=== PATIENT | female | born 1980 | race Caucasian/White ===

== ENCOUNTER 2019-07-15 08:07 | Inpatient (IN) | payer OTHER ==
[2019-07-10 15:57] VITALS: BMI 46.5
--- NOTE | 2019-07-15 08:39 | HP ---
Admitting History and Physical - Admission Chief Complaint: Morbid obesity History Source: Patient Limitations to Obtaining History: No Limitations - Past Medical History Cardiovascular: Yes: HTN ...LMP Comment: 06/16 Endocrine: Yes: Diabetes Mellitus - Past Surgical History Past Surgical History: Yes: Cholecystectomy, , Hysterectomy Additional Past Surgical History: Fibroid surgery - Smoking History Smoking history: Never smoked Have you smoked in the past 12 months: No - Alcohol/Substance Use Hx Alcohol Use: No - Social History ADL: Independent Home Medications - Allergies Allergies/Adverse Reactions: Allergies Allergy/AdvReac Type Severity Reaction Status Date / Time morphine Allergy Mild Itching Verified 07/15/19 08:35 No Known Drug Allergies Allergy Mild Unverified 07/15/19 08:34 - Home Medications Home Medications: Ambulatory Orders Atenolol/Chlorthalidone [Atenolol-Chlorthalidone 100-25] 1 each PO DAILY Mag Hydrox/Al Hydrox/Simeth [Mylanta *Suspension*] 30 ml PO Q6H PRN 07/10/19 Metformin HCl [Glucophage] 1,000 mg PO BID 07/10/19 Ranitidine HCl 150 mg PO BID 07/10/19 Family Medical History Family History: Denies Review of Systems - Review of Systems Constitutional: denies: Chills, Fever Neck: reports: No Symptoms Cardiovascular: reports: No Symptoms Respiratory: reports: No Symptoms Gastrointestinal: reports: No Symptoms Neurological: reports: No Symptoms Pain Intensity: 0 Physical Examination Constitutional: Yes: Calm Neck: Yes: WNL Cardiovascular: Yes: WNL Respiratory: Yes: Regular Gastrointestinal: Yes: Soft, Abdomen, Obese Neurological: Yes: Alert, Oriented Problem List - Problems (1) Morbid obesity due to excess calories Code(s): E66.01 - MORBID (SEVERE) OBESITY DUE TO EXCESS CALORIES (2) BMI 45.0-49.9, adult Code(s): Z68.42 - BODY MASS INDEX (BMI) 45.0-49.9, ADULT (3) Diabetes mellitus type 2 in obese Code(s): E11.69 - TYPE 2 DIABETES MELLITUS WITH OTHER SPECIFIED COMPLICATION; E66.9 - OBESITY, UNSPECIFIED (4) Hypertension Code(s): I10 - ESSENTIAL (PRIMARY) HYPERTENSION Qualifiers: Hypertension type: unspecified Qualified Code(s): I10 - Essential (primary ) hypertension Assessment/Plan Laparoscopic possible open vertical sleeve gastrectomy possible liver biopsy, upper endoscopy
[2019-07-15] MEDS ORDERED: MIDAZOLAM HCL 2 MG/2 ML SINGLE DOSE VIAL ONE ×2 (09:19→09:58)
[2019-07-15] MEDS ORDERED: DEXAMETHASONE SOD PHOSPHATE/PF 10 MG/ML SDV ONE (09:19)
[2019-07-15] MEDS ORDERED: BUPIVACAINE HCL/PF 0.5% (5 MG/ML) 30 ML VIAL IJ ONE (09:20)
[2019-07-15] MEDS ORDERED: HEPARIN NA (PORCINE) 5,000 UNITS/ML 1ML VIAL ONE (09:52)
[2019-07-15] MEDS ORDERED: PROPOFOL 20 ML ONE (09:58)
[2019-07-15] MEDS ORDERED: fentaNYL CITRATE 250 MCG/5 ML VIAL ONE (09:58)
[2019-07-15] MEDS ORDERED: ROCURONIUM BROMIDE 50 MG/5 ML SYRINGE ONE (09:58)
[2019-07-15] MEDS ORDERED: ONDANSETRON 4 MG/2 ML VIAL ONE ×2 (10:02→10:55)
[2019-07-15] MEDS ORDERED: DEXAMETHASONE SOD PHOSPHATE 4 MG/1 ML VIAL ONE (10:02)
[2019-07-15] MEDS ORDERED: KETOROLAC TROMETHAMINE 30 MG/1 ML VIAL ONE (10:02)
[2019-07-15] MEDS ORDERED: ceFAZolin SODIUM 1 GM VIAL ONE (10:15)
[2019-07-15] MEDS ORDERED: LIDOCAINE HCL/PF 2% SDV 5ML VIAL ONE (10:15)
[2019-07-15] MEDS ORDERED: BUPIVACAINE HCL/PF 0.25% (2.5MG/ML) 10 ML VIAL IJ ONE (10:29)
[2019-07-15] MEDS ORDERED: GLYCOPYRROLATE 0.2 MG/1 ML VIAL ONE (10:32)
[2019-07-15] MEDS ORDERED: NEOSTIGMINE METHYLSULFATE 0.5 MG/ML - 10 ML MDV ONE (10:33)
[2019-07-15] MEDS ORDERED: HYDROmorphone HCL CARPU-JECT 1 MG/1 ML DISP.SYRIN IVPB PRN (10:38)
[2019-07-15] MEDS ORDERED: FAMOTIDINE 20 MG/50 ML IVPB 20 MG/50 ML MG IVPB ONE (10:40)
--- NOTE | 2019-07-15 10:40 | OPR ---
Operative Note Operative Date: 07/15/19 Pre-Operative Diagnosis: Morbid obesity; BMI 46.6 Operation: 1. Diagnostic laparoscopy. 2. Laparoscopic vertical sleeve gastrectomy. 3. Laparoscopic wedge liver biopsy. 4. Laparoscopic oversewing of gastric staple line Post-Operative Diagnosis: Same as Pre-op (as well as hepatomegaly and oozing from gastric staple line) Surgeon: Paulino Edge Driver Starting Gate: Vince Collier Anesthesia: General Specimens Removed: Greater curvature of stomach. Liver biopsy. Estimated Blood Loss (mls): 30 Drains & Tubes with Location: 36 Fr Bougie Operative Report Dictated: Yes
[2019-07-15] MEDS ORDERED: SODIUM CHLORIDE 1,000 ML IV SCH (10:45)
[2019-07-15] MEDS: METOCLOPRAMIDE HCL INJECTION 10 MG/2 ML VIAL IVPUSH SCH ×4 (10:50→22:39)
[2019-07-15] MEDS: ACETAMINOPHEN 1000 MG/100 ML VIAL (NON FORMULARY) IVPB SCH ×4 (10:55→22:38)
[2019-07-15] MEDS: ONDANSETRON 4 MG/2 ML VIAL IVPUSH SCH ×5 (11:05→22:39)
[2019-07-15] MEDS ORDERED: FAMOTIDINE 20 MG PREMIXED IVPB IVPB ONE (11:10)
[2019-07-15 11:37] LABS: HEMOGLOBIN 14.5 GM/dl (10.7-15.3)
[2019-07-15 11:41] LABS: ALBUMIN 3.6 g/dl (3.4-5.0); BILIRUBIN,TOTAL 0.5 mg/dl (0.2-1); CALCIUM 8.8 mg/dl (8.5-10); CREATININE 0.7 mg/dl (0.55-1.3); POTASSIUM 3.4 mmol/L (3.5-5.1); TOT PROT 6.7 g/dl (6.4-8.2)
[2019-07-15 11:44] LABS: HEMATOCRIT 42.8 % (32.4-45.2); MCH 27.5 pg (25.7-33.7); MCHC 33.8 g/dl (32.0-36.0); MEAN CELL VOLUME 81.3 fl (80-96); PLATELET COUNT 363 K/MM3 (134-434); RBC 5.26 M/mm3 (3.60-5.2); RDW 12.5 % (11.6-15.6)
[2019-07-15 11:45] LABS: MEAN PLT VOLUME 10.1 fl (7.5-11.1)
[2019-07-15] MEDS: INSULIN SLIDING SCALE (NOVOLOG) 1 VIAL SQ SCH ×2 (12:41→17:05)
--- NOTE | 2019-07-15 13:18 | SPEC ---
DATE OF OPERATION: 07/15/2019 PLACE OF SERVICE: [facility], [address] [place] [address] SURGEON: Paulino Edge MD TRANSPORTATION OPERATIONS MANAGER: Vince Collier MD PREOPERATIVE DIAGNOSES: 1. Morbid obesity. 2. Hypertension. 3. Diabetes mellitus type 2. POSTOPERATIVE DIAGNOSES: 1. Morbid obesity. 2. Hypertension. 3. Diabetes mellitus type 2. 4. Hepatomegaly. PROCEDURES: 1. Diagnostic laparoscopy. 2. Laparoscopic vertical sleeve gastrectomy. 3. Laparoscopic wedge liver biopsy. 4. Laparoscopic over sewing of gastric staple line for oozing. SPECIMENS: 1. Greater curvature of the stomach. 2. Liver biopsy. ESTIMATED BLOOD LOSS: 30 mL. DRAINS: None. ANESTHESIA: GET. BOUGIE SIZE: 36-Maltese. REASON FOR PROCEDURE: This is a 38-year-old female who presents for weight loss options. After describing different options, she decided to proceed with laparoscopic, possible open, vertical sleeve gastrectomy, possible liver biopsy, upper endoscopy. The patient was seen by the respective subspecialties and cleared for surgery. The risks and benefits of the procedure were explained. These included bleeding, infection, hernia, LA, DVT, PE, injury to surrounding structures including the liver, colon, bowel, spleen, esophagus, vessel injury, nerve injury, weight regain, gastric leak, staple line leak, sleeve leak, obstruction, vitamin deficiency, hair loss and as some of the possible complications. The patient understood and signed informed consent. DESCRIPTION OF PROCEDURE: The patient was placed supine on the operating room table. The patient underwent general endotracheal intubation. The arms were brought out at 90 degrees and secured. A footboard was placed and the legs were secured laterally with padding. The abdomen was prepped and draped in the usual sterile fashion. A timeout was performed. An incision was made in the left upper quadrant and a Veress needle inserted. Pneumoperitoneum was established. Subsequently, the Veress needle was removed and a 5-mm trocar was placed under direct visualization with the laparoscope. The laparoscopic camera was then inserted and inspection of the abdominal cavity was performed. An incision was then made in the supraumbilical area and a 15-mm trocar was placed under direct visualization. A 5-mm trocar was then placed in the right upper quadrant and a 5-mm trocar was placed below the left subcostal margin. A stab wound was made in the subxiphoid area and a Yamilka clamp inserted and removed to dilate the tract. A Anand liver retractor was inserted. The post was secured at the bedside by the nursing staff. The patient was placed in steep reverse Trendelenburg position and the Anand liver retractor was used to secure the liver towards the anterior abdominal wall. The pylorus was identified and 6 cm proximal to it, the lesser sac was entered using the LigaSure device. All lateral attachments to the greater curvature of the stomach, including the short gastric vessels, were ligated using the LigaSure device toward the gastrosplenic and gastrophrenic ligaments. Once this was done in its entirety, it was confirmed that all tubes within the nasal or oropharyngeal cavity, including a temperature probe were removed by Anesthesia. The bougie was then inserted by Anesthesia. Transection of the stomach was then begun staying adjacent to the bougie but away from the angularis. Transection of the stomach was performed near the portion of the stomach where the lesser sac was entered. Two laparoscopic Endo-MARIANA black denice were used at this location. Laparoscopic Endo MARIANA purple staple loads were then used for the remainder of the transection until the greater curvature of the stomach was fully transected. This was done staying close to the bougie. Care was taken to stay away from the angle of His cephalad. The staple line was then inspected. Hemostasis was identified. A leak test was then performed. It was clamped distally to the staple line. Irrigation solution was placed in the left upper quadrant and air was insufflated by Anesthesia into the sleeve. No leaks were identified. No obstruction was identified. This was done through the entirety of the staple line. The stomach was suctioned and the bougie removed fully intact under direct visualization. At this point, the irrigation solution was suctioned and again, hemostasis was noted. A wedge liver biopsy was then performed. The left lobe of the liver was identified. A portion of the edge of the left lobe of the liver was grasped. Using electrocautery, a wedge of the left liver was excised. The specimen was removed and sent off the field. Hemostasis of the wedge liver biopsy site was attained and noted using electrocautery. The 15-mm supraumbilical trocar was then removed and the greater curvature specimen removed from the site using a sponge stick ramirez. A Elijah-Khushboo device was then used to close the fascia with a 0 Vicryl suture at the site. Again, hemostasis was noted. Because of slight oozing at the superior portion of the staple line, staple line needs to be over sewn with an Endo Stitch device using an Ethibond suture. Hemostasis was noted. The Anand liver retractor was then removed under direct visualization. Pneumoperitoneum was desufflated. Hemostasis was noted at all incision sites and Marcaine was injected at all incision sites. A 3-0 Vicryl suture was used to close the deep subcutaneous tissue at the 15-mm incision site. All incision sites were closed using 4-0 Biosyn. Sterile dressings were applied. The patient tolerated the procedure well and was transferred to the recovery room in stable condition. Mag CHÁVEZ/[id number]
[2019-07-15] MEDS: FAMOTIDINE 20 MG/50 ML IVPB 20 MG/50 ML MG IVPB SCH (22:22)
[2019-07-15] MEDS: ENOXAPARIN NA (PORCINE) 40 MG/0.4 ML DISP.SYRIN SQ SCH (22:22)
[2019-07-16] MEDS: ONDANSETRON 4 MG/2 ML VIAL IVPUSH SCH ×2 (03:59→07:06)
[2019-07-16] MEDS: METOCLOPRAMIDE HCL INJECTION 10 MG/2 ML VIAL IVPUSH SCH (03:59)
[2019-07-16] MEDS: ACETAMINOPHEN 1000 MG/100 ML VIAL (NON FORMULARY) IVPB SCH (04:00)
[2019-07-16 06:42] VITALS: BP 109/52; PULSE 95; TEMP 98.4
[2019-07-16] MEDS: INSULIN SLIDING SCALE (NOVOLOG) 1 VIAL SQ SCH ×2 (07:02→12:52)
--- NOTE | 2019-07-16 08:09 | DS ---
Physical Exam: SUBJECTIVE: Patient seen and examined OBJECTIVE: Vital Signs Temperature 98.4 F 07/16/19 06:00 Pulse Rate 95 H 07/16/19 06:00 Respiratory Rate 20 07/16/19 06:00 Blood Pressure 109/52 L 07/16/19 06:00 O2 Sat by Pulse Oximetry (%) 96 07/16/19 06:00 PHYSICAL EXAM GENERAL: The patient is awake, alert, and fully oriented, in no acute distress. HEAD: Normal with no signs of trauma. EYES: PERRL, extraocular movements intact, sclera anicteric, conjunctiva clear. ENT: Ears normal, nares patent, oropharynx clear without exudates, moist mucous membranes. NECK: Trachea midline, full range of motion, supple. LUNGS: breathing comfortably, no accessory muscle use. ABDOMEN: Soft, mild diffuse tenderness, nondistended, no guarding, no rebound, no hepatosplenomegaly, no masses. Incisions are clean with no erythema or discharge. EXTREMITIES: warm, well-perfused, no edema. NEUROLOGICAL: Cranial nerves II through XII grossly intact. Normal speech, gait not observed. PSYCH: Normal mood, normal affect. SKIN: Warm, dry, normal turgor, no rashes or lesions noted. LABS CBC,CMP WBC 20.0 K/mm3 (4.0-10.8) H 07/15/19 11:00 RBC 5.26 M/mm3 (3.60-5.2) H 07/15/19 11:00 Hgb 14.5 GM/dl (10.7-15.3) 07/15/19 11:00 Hct 42.8 % (32.4-45.2) 07/15/19 11:00 MCV 81.3 fl (80-96) 07/15/19 11:00 MCH 27.5 pg (25.7-33.7) 07/15/19 11:00 MCHC 33.8 g/dl (32.0-36.0) 07/15/19 11:00 RDW 12.5 % (11.6-15.6) 07/15/19 11:00 Plt Count 363 K/MM3 (134-434) 07/15/19 11:00 MPV 10.1 fl (7.5-11.1) 07/15/19 11:00 Sodium 136 mmol/L (136-145) 07/15/19 11:00 Potassium 3.4 mmol/L (3.5-5.1) L 07/15/19 11:00 Chloride 99 mmol/L (98-107) 07/15/19 11:00 Carbon Dioxide 23 mmol/L (21-32) 07/15/19 11:00 Anion Gap 14 MMOL/L (8-16) 07/15/19 11:00 BUN 12.0 mg/dl (7-18) 07/15/19 11:00 Creatinine 0.7 mg/dl (0.55-1.3) 07/15/19 11:00 Est GFR (CKD-EPI)AfAm 126.49 07/15/19 11:00 Est GFR (CKD-EPI)NonAf 109.14 07/15/19 11:00 POC Glucometer 145 UNITS (80-120) 07/16/19 06:03 Random Glucose 190 mg/dl (74-106) H 07/15/19 11:00 Calcium 8.8 mg/dl (8.5-10) 07/15/19 11:00 Total Bilirubin 0.5 mg/dl (0.2-1) 07/15/19 11:00 AST 41 U/L (15-37) H 07/15/19 11:00 ALT 34 U/L (13-61) 07/15/19 11:00 Alkaline Phosphatase 64 U/L (45-117) 07/15/19 11:00 Total Protein 6.7 g/dl (6.4-8.2) 07/15/19 11:00 Albumin 3.6 g/dl (3.4-5.0) 07/15/19 11:00 HOSPITAL COURSE: Date of Admission:07/15/19 Date of Discharge: 07/16/19 HOSPITAL COURSE: The patient was admitted to the Med-Surg Unit after elective bariatric surgery. Now, s/p laparoscopic vertical sleeve gastrectomy. The day of surgery, the patient ambulated the hallways with assistance. The patient was monitored with remote tele/continuous pulse ox. Narcotic and non-narcotic pain management control was achieved with oral and IV pain control. Upper GI series was obtained the following morning and no leak, extravastion or gastric outlet obstruction. Started on a Bariatric Stage 1 diet and tolerated well. Jackelyn-operative IV ABX were administered in addition to GI prophylaxis. DVT prophylaxis was achieved with SCDs and early ambulation. The discharge instructions and an oral pain management plan were reviewed with the patient. All questions answered. Above plan discussed with Dr. Edge and agreed. Minutes to complete discharge: 20 Visit type - Case Type Case Type: Scheduled - Emergency Emergency Visit: No - New patient This patient is new to me today: Yes Date on this admission: 07/16/19 - Critical Care Critical Care patient: No
[2019-07-16 08:18] LABS: ALBUMIN 3.4 g/dl (3.4-5.0); BILIRUBIN,TOTAL 0.7 mg/dl (0.2-1); CALCIUM 8.7 mg/dl (8.5-10); CREATININE 0.6 mg/dl (0.55-1.3); POTASSIUM 3.2 mmol/L (3.5-5.1); TOT PROT 6.8 g/dl (6.4-8.2)
[2019-07-16 08:19] LABS: HEMATOCRIT 40.1 % (32.4-45.2); HEMOGLOBIN 13.6 GM/dl (10.7-15.3); MCH 27.4 pg (25.7-33.7); MCHC 33.8 g/dl (32.0-36.0); MEAN PLT VOLUME 10.1 fl (7.5-11.1); PLATELET COUNT 320 K/MM3 (134-434); RBC 4.95 M/mm3 (3.60-5.2); RDW 12.6 % (11.6-15.6); WHITE BLOOD COUNT 20.5 K/mm3 (4.0-10.8)
[2019-07-16] MEDS: ENOXAPARIN NA (PORCINE) 40 MG/0.4 ML DISP.SYRIN SQ SCH (09:41)
[2019-07-16] MEDS: FAMOTIDINE 20 MG/50 ML IVPB 20 MG/50 ML MG IVPB SCH (09:41)
--- NOTE | 2019-07-18 15:43 | PATH ---
Surgical Pathology Report Patient Name: BOBBI PALMER Med. Rec. #: [id number] /Age/Gender: 1980 (Age: 38) / F Account: [id number] Location: [facility] MED-SURG Taken: 07/15/2019 Received: 07/15/2019 Reported: 07/18/2019 Physicians: Paulino Edge M.D. Specimen(s) Received A: GREATER CURVATURE STOMACH B: LIVER BIOPSY Clinical History Morbid obesity Final Diagnosis A. GREATER CURVATURE STOMACH, LAPAROSCOPIC VERTICAL SLEEVE GASTRECTOMY: SEGMENT OF STOMACH SHOWING CHRONIC GASTRITIS. IMMUNOSTAINING IS NEGATIVE FOR H. PYLORI ORGANISMS. B. LIVER, BIOPSY: LIVER TISSUE WITH STEATOSIS (30%), DIFFUSE. NO HISTOLOGIC EVIDENCE OF HEPATITIS. NO INCREASE IN FIBROSIS (TRICHROME STAIN) OR IRON (IRON STAIN) DEPOSITION. Electronically Signed Fouzia Covarrubias M.D. Gross Description A. Received in formalin, labeled "greater curvature of stomach," is a 79 gram, 18.0 x 3.5 x 2.3 cm. portion of stomach with a stapled margin of resection. The serosa is velasquez-valdes with minimal attached fat. The mucosa is velasquez-pink with normal folds. No mucosal masses are identified. Alum Plant Operator sections are submitted in one cassette. B. Received in formalin labeled "liver biopsy," is a 3.3 x 1.1 x 0.7 cm velasquez, irregular portion of soft tissue, consistent with a liver biopsy. Alum Plant Operator sections are submitted in one cassette. /07/17/2019 saudi07/17/2019
== END 2019-07-16 13:17 | disposition home or self-care (01) | DRG 403 ==
LOC: FM/S 08:07
PROVIDERS: ADMIT Surgery; ATTEND Surgery
PROC: 0DJ04ZZ Inspection of Upper Intestinal Tract, Percutaneous Endoscopic Approach (ICD-10-PCS; 2019-07-15)
PROC: 0DB64Z3 Excision of Stomach, Percutaneous Endoscopic Approach, Vertical (ICD-10-PCS; principal; 2019-07-15 09:51)
PROC: 0FB24ZX Excision of Left Lobe Liver, Percutaneous Endoscopic Approach, Diagnostic (ICD-10-PCS; 2019-07-15 09:51)
DX: E66.01 Morbid (severe) obesity due to excess calories (principal); Z68.42 Body mass index [BMI] 45.0-49.9, adult; I10 Essential (primary) hypertension; E11.9 Type 2 diabetes mellitus without complications; R16.0 Hepatomegaly, not elsewhere classified
CPT/HCPCS: 36415; 74241-TC-FY; 80053; 82962; 84703; 85027; 94760; J0131; J1644